=== PATIENT | female | born 1980 | race Caucasian/White ===

== ENCOUNTER 2017-10-11 20:10 | Emergency (ER) | payer MEDICAID ==
[~2017-10-11] VITALS: Ht 167.6 cm; Wt 64.9 kg
[~2017-10-11 20:10] MED LIST: ALPR1TAB2 PO; CITA20TA9 PO; HYDR-882 PO; LITH450T PO; RISP3TAB24 PO; TRAZ-137 PO
[2017-10-11] MEDS ORDERED: DICYCLOMINE 10 MG CAPSULE PO ONE (20:30)
[2017-10-11] MEDS ORDERED: SODIUM CHLORIDE 0.9% 1,000ML IVBOLUS ONE (20:30)
[2017-10-11] MEDS ORDERED: ONDANSETRON ODT 4 MG PO ONE (20:30)
[2017-10-11] MEDS ORDERED: SODIUM CHLORIDE FLUSH 10ML SYR IVF ONE (20:30)
[2017-10-11 20:40] LABS: BASOPHILS # (AUTO) 0.03 x10^3/uL (0-0.1); BASOPHILS % (AUTO) 0 % (0-1); EOSINOPHILS # (AUTO) 0.09 x10^3/uL (0-0.4); EOSINOPHILS % (AUTO) 1 % (1-7); LYMPHOCYTES # (AUTO) 1.74 x10^3/uL (1-3.4); LYMPHOCYTES % (AUTO) 17 % (22-44); MD NO; MEAN CORPUSCULAR HEMOGLOBIN 32.4 pg (27.0-34.8); MEAN CORPUSCULAR HGB CONC 34.4 g/dL (32.4-35.8); MEAN CORPUSCULAR VOLUME 94.2 fL (80-100); MEAN PLATELET VOLUME 8.3 fL (7.4-10.4); MONOCYTES # (AUTO) 0.74 x10^3/uL (0.2-0.8); MONOCYTES % (AUTO) 7 % (2-9); NEUTROPHILS # (AUTO) 7.53 x10^3/uL (1.8-6.8); NEUTROPHILS % (AUTO) 74 % (42-75); PLATELET COUNT 308 x10^3/uL (130-400); RED CELL DISTRIBUTION WIDTH 12.8 % (9.6-15.2)
[2017-10-11] MEDS ORDERED: ONDANSETRON ODT 4 MG ONE (20:44)
[2017-10-11] MEDS ORDERED: DICYCLOMINE 10 MG CAPSULE ONE (20:45)
[2017-10-11 20:49] LABS: ALANINE AMINOTRANSFERASE 18 U/L (12-78); ALBUMIN 4.1 g/dL (3.4-5.0); ANION GAP 12 mmol/L (5-15); CALCIUM 8.5 mg/dL (8.5-10.1); CHLORIDE 105 mmol/L (98-107); CREATININE 1.28 mg/dL (0.55-1.02)
[2017-10-11 20:52] LABS: ALKALINE PHOSPHATASE 96 U/L (45-117); BILIRUBIN,TOTAL 0.7 mg/dL (0.2-1.0); TOTAL PROTEIN 7.7 g/dL (6.4-8.2)
[2017-10-11 21:31] LABS: MICROSCOPIC INDICATED
[2017-10-11 21:41] LABS: HCG UR SG 1.035 (1.003-1.030)
[2017-10-11 21:46] VITALS: BP 134/82
[2017-10-11 21:56] LABS: CULTURE INDICATED? NO
== END 2017-10-11 22:18 | disposition home or self-care (01) ==
LOC: ED 22:06
DX: R10.84 Generalized abdominal pain (principal); R10.33 Periumbilical pain; R11.2 Nausea with vomiting, unspecified; R19.7 Diarrhea, unspecified; I10 Essential (primary) hypertension; F31.9 Bipolar disorder, unspecified; F17.210 Nicotine dependence, cigarettes, uncomplicated; F20.9 Schizophrenia, unspecified
CPT/HCPCS: 36415; 80053; 81001; 81025; 83690; 85025; 99284; J7030; Q0162